=== PATIENT | male | born 2005 | race Caucasian/White ===

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

== ENCOUNTER 2024-11-07 15:52 | Emergency (ER) | payer OTHER ==
[~2024-11-07] VITALS: Ht 172.7 cm; Wt 90.7 kg
[2024-11-07 16:25] VITALS: BP 116/71
== END 2024-11-07 17:56 | disposition home or self-care (01) ==
LOC: ER 15:52
DX: S83.015A Lateral dislocation of left patella, initial encounter (principal); Z59.89 Other problems related to housing and economic circumstances; W18.30XA Fall on same level, unspecified, initial encounter; Y93.64 Activity, baseball
CPT/HCPCS: 73562-LT; 99283-25

== ENCOUNTER 2024-12-10 06:56 | Day surgery (SDC) | payer OTHER ==
[~2024-12-10] VITALS: Ht 172.7 cm; Wt 89.6 kg
[2024-12-10] MEDS ORDERED: CeFAZolin Sodium 2,000 MG VIAL ONE (07:09)
[2024-12-10] MEDS ORDERED: Tranexamic Acid 100 ML IV ONE (07:10)
[2024-12-10] MEDS ORDERED: IBUP200 PO (07:15)
[2024-12-10] MEDS ORDERED: Dexamethasone Sod Phos 10 MG/ML 1ML VIAL ONE ×2 (09:10→10:50)
[2024-12-10] MEDS ORDERED: Bupivacaine HCl 0.25% 30 ML Injection ONE ×2 (09:10→09:14)
[2024-12-10] MEDS ORDERED: Midazolam HCl 1MG / ML 2ML Vial ONE (09:11)
--- NOTE | 2024-12-10 09:55 | NUR ---
12/10/24 0955 Vannessa Montiel TIME OUT PERFORMED AT BEDSIDE WITH DR ARMENTA AT 0936 ADDUCTOR CANAL NERVE BLOCK STARTED AT 0940 AND ENDED AT 0942. PT ON 2L O2 VIA N/C FOR PROCEDURE AND SPO2 AND HR MONITORED THROUGHOUT PROCEDURE. PT TOLERATED PROCEDURE WELL.
[2024-12-10] MEDS ORDERED: Bupivacaine 0.5% W/EPI 1:200000 SDV 30 ML Vial ONE (10:13)
[2024-12-10] MEDS ORDERED: FentaNYL Citrate 50 MCG/ML 2 ML Injection ONE (10:32)
[2024-12-10] MEDS ORDERED: Ondansetron HCl 2 MG / ML 2ML Vial ONE (10:50)
[2024-12-10] MEDS ORDERED: HYDROmorphone HCl/Pf 1MG SYR ONE (11:33)
--- NOTE | 2024-12-10 12:28 | NUR ---
12/10/24 1228 Inna Bryant 1219 PT. OPENS EYES, JUST WAKING UP. PT. VERBALIZES PAIN IN LEFT KNEE, "I CAN FEEL WHERE THEY WORKED, PT. RATING "5" TO LEFT KNEE. PT. WITH GOOD CAP REFILL TO LEFT TOES.
[2024-12-10 12:44] VITALS: BP 128/78
--- NOTE | 2024-12-10 14:06 | NUR ---
12/10/24 1406 Jonathan Washington PT REPORTED 5/10 L KNEE PAIN UPON D/C (FLACC 0/10). HE DESCRIBED PAIN TOLERABLE AND DENIED NAUSEA. PT APPEARED ALERT AND RELAXED UPON D/C AND EXPRESSED READINESS TO RETURN HOME.
== END 2024-12-10 13:58 | disposition home or self-care (01) ==
LOC: ORSCSDS 06:56
PROVIDERS: Orthopaedic Surgery Sports Medicine
PROC: 0YQG0ZZ Repair Left Knee Region, Open Approach (ICD-10-PCS; principal; 2024-12-10 08:30)
PROC: 0SSD0ZZ Reposition Left Knee Joint, Open Approach (ICD-10-PCS; principal; 2024-12-10 08:30)
PROC: 0SJD4ZZ Inspection of Left Knee Joint, Percutaneous Endoscopic Approach (ICD-10-PCS; principal; 2024-12-10 08:30)
DX: S83.411A Sprain of medial collateral ligament of right knee, initial encounter (principal)
CPT/HCPCS: C1713; C1889; J0166; J0690; J1100; J1171; J2250; J2405; J2704; J3010; J7120